=== PATIENT | female | born 1990 | race Caucasian/White ===

== ENCOUNTER 2018-07-31 18:03 | Emergency (ER) | payer OTHER ==
[~2018-07-31] VITALS: Ht 157.5 cm; Wt 59.0 kg
[2018-07-31 18:12] VITALS: BP_SYST 138
[2018-07-31] MEDS ORDERED: PANTOPRAZOLE SODIUM 40 MG/VIAL (PROTONIX) IVP ONE (18:45)
[2018-07-31] MEDS ORDERED: NACL 0.9% 1,000 ML IV ONE (18:45)
[2018-07-31 19:07] LABS: BASOPHILS % (AUTO) 0.3 % (0.0-2.0); EOSINOPHILS % (AUTO) 0.4 % (0.0-4.0); HEMOGLOBIN 13.6 g/dL (12.0-16.0); LYMPHOCYTES # (AUTO) 2.4 K/uL (1.0-5.5); LYMPHOCYTES % (AUTO) 28.9 % (20.5-51.5); MEAN CORPUSCULAR HEMOGLOBIN 30 pg (27-31); MEAN CORPUSCULAR HGB CONC 33 % (32-36); MEAN CORPUSCULAR VOLUME 90 fL (79.0-98.0); MONOCYTES # (AUTO) 0.3 K/uL (0.0-1.0); MONOCYTES % (AUTO) 3.6 % (1.7-9.3); NEUTROPHILS # (AUTO) 5.6 K/uL (1.8-7.7); NEUTROPHILS % (AUTO) 66.8 % (40.0-70.0); PLATELET COUNT (AUTO) 279 K/uL (130-430); RED BLOOD CELL COUNT(AUTO) 4.56 MIL/uL (4.2-6.2); RED CELL DISTRIBUTION WIDTH 12.6 % (9.0-15.0); WHITE BLOOD COUNT (AUTO) 8.3 K/uL (4.8-10.8)
[2018-07-31 19:24] LABS: CALCIUM 9.4 mg/dL (8.4-11.0); CREATININE 0.77 mg/dL (0.55-1.30); POTASSIUM 3.1 mmol/L (3.5-5.1)
[2018-07-31 19:28] LABS: ALBUMIN 4.6 g/dL (3.4-4.8); TOTAL BILIRUBIN 0.4 mg/dL (0.0-1.0)
[2018-07-31] MEDS ORDERED: MAGNESIUM OXIDE 400 MG TABLET PO ONE (20:30)
[2018-07-31] MEDS ORDERED: POTASSIUM CHLORIDE 20 MEQ TAB.PRT.SR PO ONE (20:30)
[2018-07-31] MEDS ORDERED: MAGNESIUM OXIDE 400 MG TABLET ONE (20:54)
[2018-07-31 21:05] VITALS: BP_SYST 124
== END 2018-07-31 21:05 | disposition home or self-care (01) ==
LOC: SED 18:03
DX: R10.13 Epigastric pain (principal); E87.6 Hypokalemia; R03.0 Elevated blood-pressure reading, without diagnosis of hypertension
CPT/HCPCS: 36415; 76700; 80053; 81025; 85025; 96361; 96374; 99284; C9113; J7030